=== PATIENT | male | born 1945 | race Two or more races ===

== ENCOUNTER 2024-02-16 16:03 | Emergency (ER) | payer OTHER ==
[~2024-02-16] VITALS: Ht 167.6 cm; Wt 72.6 kg
[2024-02-16] MEDS ORDERED: ACETAMINOPHEN ES 500 MG TABLET ONE (16:47)
[2024-02-16] MEDS: ACETAMINOPHEN ES 500 MG TABLET PO ONE (16:49)
[2024-02-16 18:53] VITALS: BP 128/71; TEMP 98; O2SAT 98
== END 2024-02-16 18:53 | disposition home or self-care (01) ==
LOC: ER 16:09
DX: S00.83XA Contusion of other part of head, initial encounter (principal); S40.021A Contusion of right upper arm, initial encounter; S09.8XXA Other specified injuries of head, initial encounter; I10 Essential (primary) hypertension; E78.00 Pure hypercholesterolemia, unspecified; Y04.2XXA Assault by strike against or bumped into by another person, initial encounter; Y93.89 Activity, other specified; Y92.89 Other specified places as the place of occurrence of the external cause; Y99.8 Other external cause status
CPT/HCPCS: 70450-TC; 70486-TC; 73030-TC